=== PATIENT | female | born 1955 | race Caucasian/White ===

== ENCOUNTER 2018-12-16 20:00 | Emergency (ER) | payer OTHER ==
[~2018-12-16] VITALS: Ht 160 cm; Wt 63.5 kg
[2018-12-16] MEDS ORDERED: NITROSTAT0.4 MG SL (20:32)
== END 2018-12-16 22:29 | disposition home or self-care (01) ==
LOC: ED 20:00
DX: S50.812A Abrasion of left forearm, initial encounter (principal); S19.9XXA Unspecified injury of neck, initial encounter; S69.92XA Unspecified injury of left wrist, hand and finger(s), initial encounter; Z90.710 Acquired absence of both cervix and uterus; Z88.0 Allergy status to penicillin; Z88.5 Allergy status to narcotic agent; Y04.0XXA Assault by unarmed brawl or fight, initial encounter; Y92.149 Unspecified place in prison as the place of occurrence of the external cause
CPT/HCPCS: 70490; 73110; 99284-25